=== PATIENT | female | born 1990 | race Caucasian/White ===

== ENCOUNTER 2017-04-29 20:09 | Emergency (ER) | payer MEDICAID ==
[~2017-04-29] VITALS: Ht 175.3 cm; Wt 136.6 kg
[2017-04-29] MEDS ORDERED: ondansetron/PF 4mg/2ml inj IV ONE (20:40)
[2017-04-29] MEDS ORDERED: normal saline 1000ML IV soln IVB ONE (20:40)
[2017-04-29 21:00] LABS: BASOPHILS % (AUTO) 0.5 % (0-1); EOSINOPHILS # (AUTO) 0.2 X10'3 (0-0.9); EOSINOPHILS % (AUTO) 2.9 % (0-6); HEMATOCRIT 35.4 % (35.0-45.0); HEMOGLOBIN 12.3 g/dl (12.0-16.0); LYMPHOCYTES % (AUTO) 28.6 % (21-51); MEAN CORPUSCULAR HEMOGLOBIN 28.1 PG (27.0-31.0); MEAN CORPUSCULAR HGB CONC 34.7 % (33.0-36.5); MEAN CORPUSCULAR VOLUME 80.9 FL (78-98); MEAN PLATELET VOLUME 8.8 FL (7.4-10.4); MONOCYTES # (AUTO) 0.4 X10'3 (0-0.9); MONOCYTES % (AUTO) 5.9 % (2-12); NEUTROPHILS # (AUTO) 4.4 X10'3 (1.8-7.7); NEUTROPHILS % (AUTO) 62.1 % (42-75); PLATELET COUNT 223 X10'3 (140-440); RED BLOOD COUNT 4.37 X10'6 (4.20-5.60); RED CELL DISTRIBUTION WIDTH 14.2 % (11.5-14.5)
[2017-04-29] MEDS ORDERED: glucagon, human recombinant 1mg kit IV ONE (21:05)
[2017-04-29] MEDS ORDERED: LORazepam 2 mg/ml vial IV ONE (21:05)
[2017-04-29 21:12] LABS: PARTIAL THROMBOPLASTIN TIME 26 SECONDS (22-32); PROTHROMBIN TIME 10.7 SECONDS (9.0-12.0)
[2017-04-29 21:14] LABS: ALANINE AMINOTRANSFERASE 34 U/L (12-78); ALBUMIN 3.9 G/DL (3.4-5.0); ALBUMIN/GLOBULIN RATIO 1.1 (1.1-1.5); ALKALINE PHOSPHATASE 93 IU/L (46-116); ANION GAP 11 (8-16); ASPARTATE AMINO TRANSFERASE 18 U/L (10-37); BILIRUBIN,TOTAL 0.3 MG/DL (0.1-1.0); BLOOD UREA NITROGEN 11 MG/DL (7-18); BUN/CREATININE RATIO 13.6 (6.6-38.0); CALCIUM 8.4 MG/DL (8.5-10.1); CHLORIDE 105 MMOL/L (99-107); CREATININE 0.81 MG/DL (0.40-0.90); GLUCOSE 107 MG/DL (70-104); POTASSIUM 3.4 MMOL/L (3.5-5.1); SODIUM 143 MMOL/L (135-145); TOTAL CARBON DIOXIDE 27.2 MMOL/L (24-32); TOTAL PROTEIN 7.4 G/DL (6.4-8.2); eGFR 84 ML/MIN
[2017-04-29 21:40] VITALS: BP_SYST 118; BP_SYST 158; BP_DIAS 89
[2017-04-29] MEDS ORDERED: LIDOcaine Viscous 15ml cup ONE (21:48)
[2017-04-29] MEDS ORDERED: fentaNYL/PF 50MCG/1 ML 2ML syringe ONE (21:48)
[2017-04-29] MEDS ORDERED: MIDAZolam 5mg/ml 2ml vial ONE (21:48)
[2017-04-29 22:23] VITALS: BP 151/94
[2017-04-29 22:33] VITALS: BP 138/81
[2017-04-29 22:43] VITALS: BP 158/82
[2017-04-29 22:53] VITALS: BP 157/84
[2017-04-29 23:24] VITALS: BP 150/64
== END 2017-04-29 23:25 | disposition home or self-care (01) ==
LOC: ER 20:10
DX: T18.128A Food in esophagus causing other injury, initial encounter (principal); Z88.5 Allergy status to narcotic agent; X58.XXXA Exposure to other specified factors, initial encounter; Y93.89 Activity, other specified; Y92.89 Other specified places as the place of occurrence of the external cause; Y99.8 Other external cause status; Z90.49 Acquired absence of other specified parts of digestive tract; Z79.01 Long term (current) use of anticoagulants
CPT/HCPCS: 36415; 43235; 80053; 85025; 85610; 85730; 93005; 96361; 96374; 96375; 99285; J1610; J2060; J2250; J2405; J3010; J7030; A4620; G0500